=== PATIENT | female | born 1955 | race African-American/Black ===

== ENCOUNTER 2021-02-14 14:14 | Emergency (ER) | payer OTHER, MEDICAID ==
[~2021-02-14] VITALS: Ht 162.6 cm; Wt 63.5 kg
[~2021-02-14 14:14] MED LIST: HYDR25TA4 PO; LISI20TA28 PO; SIMV10TA84 PO
[2021-02-14 20:29] VITALS: BP 170/90
== END 2021-02-14 20:41 | disposition home or self-care (01) ==
LOC: ER 14:14
DX: U07.1 COVID-19 (principal); R53.83 Other fatigue; J02.9 Acute pharyngitis, unspecified; M79.10 Myalgia, unspecified site; I10 Essential (primary) hypertension; E11.9 Type 2 diabetes mellitus without complications; E78.5 Hyperlipidemia, unspecified; E03.9 Hypothyroidism, unspecified; Z90.710 Acquired absence of both cervix and uterus
CPT/HCPCS: 36415; 71045; 87426